=== PATIENT | male | born 1960 | race African-American/Black ===

== ENCOUNTER 2018-03-11 13:58 | Emergency (ER) | payer SELFPAY ==
[2018-03-11 14:36] LABS: #Neutrophils 3.9 thou/uL (1.40-6.50); %Basophils 0.9 % (0.0-1.0); %Eosinophils 0.8 % (0.0-10.0); %Neutrophils 67.2 % (42.0-75.0); Hemoglobin 15.6 g/dL (14.0-18.0); Manual Diff?? NO; Mean Corpuscular Hemoglobin 33.3 pg (27.0-31.0); Mean Corpuscular Volume 92.6 fL (80.0-94.0); Mean Platelet Volume 8.8 fL (7.4-10.4); Platelet Count 139 thou/uL (130-400); RBC Distribution Width 12.5 % (11.5-14.5); White Blood Cell (WBC) Count 5.8 thou/uL (4.8-10.8)
[2018-03-11 14:37] LABS: #Basophils 0.1 thou/uL (0.0-0.2); #Eosinphils 0.1 thou/uL (0.0-0.7); #Monocytes 0.5 thou/uL (0.11-0.59); MDiff Complete? YES
[2018-03-11 14:38] LABS: ALT (SGPT) 21 U/L (8-55); AST (SGOT) 37 U/L (5-34); Albumin 4.2 g/dL (3.5-5.0); Alkaline Phosphatase 36 U/L (40-150); Anion Gap 12 mmol/L (10-20); BUN (Urea Nitrogen) 10 mg/dL (8.4-25.7); Calc. Creatinine Clearance 0 mL/min (70-130); Carbon Dioxide 25 mmol/L (22-29); Chloride 103 mmol/L (98-107); Estimated GFR-MDRD Greater than 90; Globulin 3.4 g/dL (2.4-3.5); Glucose 94 mg/dL (70-105); Lipase 7 U/L (8-78); Potassium 3.8 mmol/L (3.5-5.1); Protein, Total 7.6 g/dL (6.0-8.3); Sodium 136 mmol/L (136-145)
[2018-03-11 14:40] LABS: CKMB 0.6 ng/mL (0-6.6); Troponin I Less than 0.010 ng/mL (< 0.028)
--- NOTE | 2018-03-11 17:51 | RAD ---
PORTABLE CHEST: 03/11/18 An AP portable film at 1406 shows a normal sized heart and clear lungs. No infiltrate or effusion was seen. There is no vascular congestion or edema. The mediastinum appears normal. IMPRESSION: No acute thoracic finding. POS: HOME
== END 2018-03-11 15:10 | disposition home or self-care (01) ==
LOC: BURERS 13:58
DX: I10 Essential (primary) hypertension (principal); F17.210 Nicotine dependence, cigarettes, uncomplicated
CPT/HCPCS: 36415; 71045; 80053; 82553; 83690; 83880; 84484; 85025; 93005; 99406

== ENCOUNTER 2019-01-19 12:57 | Emergency (ER) | payer SELFPAY ==
[2019-01-19] MEDS ORDERED: Cyclobenzaprine 10 MG TAB ONE (13:05)
[2019-01-19] MEDS ORDERED: Ketorolac Tromethamine 30 MG/ML VIAL ONE (13:05)
== END 2019-01-19 13:30 | disposition home or self-care (01) ==
LOC: BURERS 12:57
DX: M54.5 Low back pain (principal); I10 Essential (primary) hypertension; F17.210 Nicotine dependence, cigarettes, uncomplicated
CPT/HCPCS: 96374; J1885

== ENCOUNTER 2020-12-28 11:04 | Emergency (ER) | payer SELFPAY ==
[2020-12-28] MEDS ORDERED: Ketorolac Tromethamine 30 MG/ML VIAL ONE (11:50)
[2020-12-28] MEDS ORDERED: Morphine 4 MG/ML VIAL ONE (11:50)
== END 2020-12-28 12:38 | disposition home or self-care (01) ==
LOC: BURERS 11:04
DX: M54.5 Low back pain (principal); M25.552 Pain in left hip; I10 Essential (primary) hypertension; F17.210 Nicotine dependence, cigarettes, uncomplicated; Z79.899 Other long term (current) drug therapy
CPT/HCPCS: 96374; 96375; J1885; J2270